=== PATIENT | female | born 1945 | race Caucasian/White ===

== ENCOUNTER → 2018-02-03 | Outpatient (CLI) | payer MEDICARE, BC | END | disposition home or self-care (01) | LOC: CFH 15:51 | PROVIDERS: ATTEND Psychiatry & Neurology Neurology | DX: I67.82 Cerebral ischemia (principal); F03.90 Unspecified dementia, unspecified severity, without behavioral disturbance, psychotic disturbance, mood disturbance, and anxiety | CPT/HCPCS: 70450 ==

== ENCOUNTER 2018-02-24 23:52 | Emergency (ER) | payer MEDICARE, BC ==
[~2018-02-24] VITALS: Ht 157.5 cm; Wt 60.0 kg
[2018-02-25 00:23] LABS: BASOPHILS # (AUTO) 0.03 x10^3/uL (0-0.1); BASOPHILS % (AUTO) 1 % (0-1); EOSINOPHILS # (AUTO) 0.19 x10^3/uL (0-0.4); EOSINOPHILS % (AUTO) 3 % (1-7); LYMPHOCYTES # (AUTO) 1.74 x10^3/uL (1-3.4); LYMPHOCYTES % (AUTO) 27 % (22-44); MD NO; MEAN CORPUSCULAR HEMOGLOBIN 32.8 pg (27.0-34.8); MEAN CORPUSCULAR HGB CONC 34.8 g/dL (32.4-35.8); MEAN CORPUSCULAR VOLUME 94.1 fL (80-100); MONOCYTES # (AUTO) 0.86 x10^3/uL (0.2-0.8); MONOCYTES % (AUTO) 13 % (2-9); NEUTROPHILS # (AUTO) 3.58 x10^3/uL (1.8-6.8); NEUTROPHILS % (AUTO) 56 % (42-75); PLATELET COUNT 198 x10^3/uL (130-400); RED BLOOD COUNT 4.14 x10^6/uL (3.82-5.3); RED CELL DISTRIBUTION WIDTH 12.7 % (9.6-15.2)
[2018-02-25 00:43] LABS: ALBUMIN 3.7 g/dL (3.4-5.0); ANION GAP 5 mmol/L (5-15); CALCIUM 8.8 mg/dL (8.5-10.1); CHLORIDE 108 mmol/L (98-107); CREATININE 0.76 mg/dL (0.55-1.02)
[2018-02-25 01:20] VITALS: BP 135/89
== END 2018-02-25 01:58 | disposition home or self-care (01) ==
LOC: ED 02-25 01:10
DX: S06.0X0A Concussion without loss of consciousness, initial encounter (principal); G30.1 Alzheimer's disease with late onset; F02.80 Dementia in other diseases classified elsewhere, unspecified severity, without behavioral disturbance, psychotic disturbance, mood disturbance, and anxiety; W01.0XXA Fall on same level from slipping, tripping and stumbling without subsequent striking against object, initial encounter; Y93.89 Activity, other specified; Y92.099 Unspecified place in other non-institutional residence as the place of occurrence of the external cause; Y99.8 Other external cause status
CPT/HCPCS: 36415; 70450; 80048; 82040; 85025; 93005; 99284

== ENCOUNTER 2018-03-12 01:47 | Emergency (ER) | payer MEDICARE, BC ==
[~2018-03-12] VITALS: Ht 170.2 cm; Wt 60.0 kg
--- NOTE | 2018-03-12 02:06 | NUR ---
TASK RN: DAVID WREN FROM [place] W/ CO R HIP PAIN AND LOW BACK PAIN AFTER UNWITNESSED FALL. UNABLE TO OBTAIN ACCURATE RECOUNT OF EVENT OR HX FROM PT D/T SEVERE ALZHEIMERS. NO SHORTENING OR ROTATION NOTED. +CMS. [facility] REPORTS AMBULATORY ONSCENE. BP/SPO2/ECG MONITORING IN PLACE. NSR ON MONITOR. SITTER PRESENT PT REQUIRES CONSTANT REDIRECTION AND REASSURANCE
--- NOTE | 2018-03-12 03:07 | NUR ---
BACK FORM CT AT THIS TIME
[2018-03-12 03:42] VITALS: BP 120/62
--- NOTE | 2018-03-12 03:49 | NUR ---
TRANSFER SET UP THROUGH [facility]. ETA IS [id number]
--- NOTE | 2018-03-12 04:00 | NUR ---
REPORT TO ALDEN MARLEY PT TO GO BACK WITH [facility]
--- NOTE | 2018-03-12 04:05 | NUR ---
[facility] HAS ARRIVED FOR TRANSFER
== END 2018-03-12 04:22 | disposition home or self-care (01) ==
LOC: ED 03:33
DX: S70.02XA Contusion of left hip, initial encounter (principal); S70.01XA Contusion of right hip, initial encounter; W01.0XXA Fall on same level from slipping, tripping and stumbling without subsequent striking against object, initial encounter; Y93.89 Activity, other specified; Y92.89 Other specified places as the place of occurrence of the external cause; Y99.8 Other external cause status
CPT/HCPCS: 72192; 93005; 99284